=== PATIENT | female | born 1965 | race American Indian/Alaskan Native ===

== ENCOUNTER 2019-07-03 08:59 | Emergency (ER) | payer MEDICAID, OTHER ==
[~2019-07-03] VITALS: Ht 160 cm; Wt 85.9 kg
[~2019-07-03 08:59] MED LIST: CLON0.2T PO; HYDR-3965 PO; ONDA4TAB12 PO; PENI500T2 PO
[2019-07-03] MEDS ORDERED: cloNIDine 0.1 mg tablet PO SCH (10:30)
[2019-07-03] MEDS ORDERED: ibuprofen tablet 400 MG TABLET PO ONE (10:30)
[2019-07-03] MEDS ORDERED: IBUP-1984 PO (10:58)
[2019-07-03 11:17] VITALS: BP 210/125
== END 2019-07-03 11:20 | disposition home or self-care (01) ==
LOC: ER 09:00
DX: M25.562 Pain in left knee (principal); I10 Essential (primary) hypertension; F17.200 Nicotine dependence, unspecified, uncomplicated; Z98.890 Other specified postprocedural states; Z79.899 Other long term (current) drug therapy; Z79.2 Long term (current) use of antibiotics; W18.39XA Other fall on same level, initial encounter; Y93.89 Activity, other specified; Y92.89 Other specified places as the place of occurrence of the external cause; Y99.8 Other external cause status
CPT/HCPCS: 29505; 73564; 99283

== ENCOUNTER 2019-11-06 08:10 | Emergency (ER) | payer MEDICAID ==
[~2019-11-06] VITALS: Ht 160 cm; Wt 87.8 kg
[2019-11-06] MEDS ORDERED: HYDROcodone/acetaminophen 10/325mg tab PO ONE (08:40)
[2019-11-06] MEDS ORDERED: ondansetron 4mg rapidly disintigrating tab PO ONE (08:40)
--- NOTE | 2019-11-06 09:02 | NUR ---
APPLY ICE PACK TO RIGHT ARM
[2019-11-06] MEDS ORDERED: IBUP-1984 PO (09:44)
[2019-11-06 10:22] VITALS: BP 217/136
== END 2019-11-06 10:24 | disposition home or self-care (01) ==
LOC: ER 08:11
DX: S42.401A Unspecified fracture of lower end of right humerus, initial encounter for closed fracture (principal); M25.531 Pain in right wrist; I10 Essential (primary) hypertension; Z98.890 Other specified postprocedural states; Z79.899 Other long term (current) drug therapy; W18.39XA Other fall on same level, initial encounter; Y93.89 Activity, other specified; Y92.89 Other specified places as the place of occurrence of the external cause; Y99.8 Other external cause status
CPT/HCPCS: 29105; 73080; 73110; 99284

== ENCOUNTER 2020-03-12 08:01 | Inpatient (IN) | payer MEDICAID ==
[~2020-03-12] VITALS: Ht 160 cm; Wt 85.0 kg
[2020-03-12] MEDS ORDERED: morphine 4 MG/ML inj SYRINge IV ONE ×2 (09:05→10:10)
[2020-03-12] MEDS ORDERED: normal saline 1000ml 1,000 ML IV ONE (09:05)
[2020-03-12] MEDS ORDERED: ondansetron/PF 4mg/2ml inj IV ONE (09:05)
[2020-03-12 09:32] LABS: BASOPHILS % (AUTO) 0.2 % (0-1); EOSINOPHILS % (AUTO) 0.3 % (0-6); HEMATOCRIT 47.5 % (35.0-45.0); HEMOGLOBIN 15.8 g/dl (12.0-16.0); LYMPHOCYTES # (AUTO) 1.3 X10'3 (1.1-4.8); LYMPHOCYTES % (AUTO) 9.3 % (21-51); MEAN CORPUSCULAR HEMOGLOBIN 31.3 PG (27.0-31.0); MEAN CORPUSCULAR HGB CONC 33.3 g/dL (33.0-36.5); MEAN CORPUSCULAR VOLUME 94.2 FL (78-98); MEAN PLATELET VOLUME 6.8 FL (7.4-10.4); MONOCYTES # (AUTO) 0.7 X10'3 (0-0.9); NEUTROPHILS # (AUTO) 11.6 X10'3 (1.8-7.7); NEUTROPHILS % (AUTO) 85.2 % (42-75); PLATELET COUNT 188 X10'3 (140-440); RED BLOOD COUNT 5.04 X10'6 (4.20-5.60); RED CELL DISTRIBUTION WIDTH 12.9 % (11.5-14.5); WHITE BLOOD COUNT 13.7 X10'3 (4.5-11.0)
[2020-03-12 09:46] LABS: ALANINE AMINOTRANSFERASE 84 U/L (12-78); ALBUMIN 4.2 G/DL (3.4-5.0); ALKALINE PHOSPHATASE 70 IU/L (46-116); ANION GAP 17 (8-16); ASPARTATE AMINO TRANSFERASE 82 U/L (10-37); BILIRUBIN,TOTAL 0.5 MG/DL (0.1-1.0); BLOOD UREA NITROGEN 17 MG/DL (7-18); BUN/CREATININE RATIO 13.3 (6.6-38.0); CHLORIDE 103 MMOL/L (99-107); CREATININE 1.28 MG/DL (0.40-0.90); GLUCOSE 206 MG/DL (70-104); POTASSIUM 4.4 MMOL/L (3.5-5.1); SODIUM 142 MMOL/L (135-145); TOTAL CARBON DIOXIDE 21.6 MMOL/L (24-32); TOTAL PROTEIN 8.3 G/DL (6.4-8.2); eGFR 44 ML/MIN
[2020-03-12] MEDS ORDERED: labetalol 20mg/4ml (5mg/ml) syringe IV ONE (09:55)
[2020-03-12 10:03] LABS: LIPASE 14160 U/L (73-393)
[2020-03-12] MEDS ORDERED: normal saline 1000ML IV soln IV ONE (10:10)
[2020-03-12] MEDS ORDERED: fentaNYL/PF 50MCG/1 ML 2ML syringe IV ONE (10:15)
[2020-03-12 10:19] LABS: CLARITY,URINE CLOUDY (Clear); COLOR,URINE YELLOW (Yellow); GLUCOSE, URINE NEGATIVE (Neg); KETONES,URINE TRACE mg/dl (Neg); LEUKOCYTE ESTERASE ,URINE NEGATIVE (Neg); NITRITES, URINE NEGATIVE (Neg); OCCULT BLOOD,URINE NEGATIVE (Neg); PH,URINE 5.5 (4.8-8.0); PROTEIN,URINE 30 mg/dl (Neg); UA COLLECTION TYPE CLN CATCH MIDSTREAM; UROBILINOGEN,URINE 0.2 E.U/dL (0.2-1.0)
--- NOTE | 2020-03-12 10:22 | NUR ---
pt out to ct via wheelchair with director geophysical laboratory
[2020-03-12 10:24] LABS: SQUAMOUS EPITHELIAL CELL,UR MODERATE /LPF (FEW)
[2020-03-12 10:25] LABS: BACTERIA,URINE FEW /HPF (Neg); HYALINE CASTS >30 /LPF (NEGATIVE); MUCUS STRANDS MODERATE /LPF (Neg); RBC,URINE 0-2 /HPF (0-2); URINE AMPHETAMINE SCREEN NEGATIVE (Neg); URINE BARBITUATE SCREEN NEGATIVE (Neg); URINE BENZODIAZEPINES SCREEN NEGATIVE (Neg); URINE CANNABINOID SCREEN NEGATIVE (Neg); URINE COCAINE SCREEN NEGATIVE (Neg); URINE METHADONE SCREEN NEGATIVE (Neg); URINE OPIATE SCREEN POSITIVE (Neg); URINE PHENCYCLIDINE SCREEN NEGATIVE (Neg); WBC,URINE 0-4 /HPF (0-4)
--- NOTE | 2020-03-12 10:31 | NUR ---
pt returns from ct
--- NOTE | 2020-03-12 10:45 | NUR ---
marilu Mortensen is cleared for updates [phone]
[2020-03-12] MEDS ORDERED: HYDROmorphone 1 mg/ml syringe IV ONE (11:00)
[2020-03-12] MEDS ORDERED: haloperidol lactate 5mg/ml inj IM PRN (12:10)
[2020-03-12] MEDS ORDERED: mag hydrox/Alum hydrox/simeth 30ml oral suspension PO PRN (12:10)
[2020-03-12] MEDS ORDERED: thiamine 100mg/ml 2ml inj. IV ONE (12:10)
[2020-03-12] MEDS ORDERED: haloperidol 5mg tablet PO PRN (12:10)
[2020-03-12] MEDS ORDERED: HYDROcodone/acetaminophen 10/325mg tab PO PRN (12:10)
[2020-03-12] MEDS ORDERED: magnesium 4gm in 100ml NS 100 ML IV PRN (12:10)
[2020-03-12] MEDS ORDERED: potassium CL 10mEq/100ml bag 100 ML IV PRN ×2 (12:10)
[2020-03-12] MEDS ORDERED: magnesium Cl slow-release 64mg tablet PO PRN (12:10)
[2020-03-12] MEDS ORDERED: ondansetron/PF 4mg/2ml inj IV PRN (12:10)
[2020-03-12] MEDS ORDERED: dextrose 50%-water 50ml dispensing syringe IV PRN (12:10)
[2020-03-12] MEDS ORDERED: HYDROmorphone inj. 0.5 MG/0.5 ML DISP.SYRIN IV PRN (12:10)
[2020-03-12] MEDS ORDERED: acetaminophen 325mg tablet PO PRN ×2 (12:10)
[2020-03-12] MEDS ORDERED: potassium Cl 20 mEq SR tablet PO PRN ×2 (12:10)
[2020-03-12] MEDS ORDERED: magnesium 2GM in 50ml NS 50 ML IV PRN (12:10)
[2020-03-12] MEDS ORDERED: LOSA25TA96 PO (12:12)
[2020-03-12] MEDS ORDERED: CLON-330 PO (12:25)
[2020-03-12] MEDS ORDERED: LOSA1TAB41 PO (12:25)
[2020-03-12] MEDS: normal saline 1000ml 1,000 ML IV SCH ×2 (13:19→19:53)
[2020-03-12 15:00] VITALS: BP 189/121
[2020-03-12 18:00] VITALS: BP 194/93
--- NOTE | 2020-03-12 18:30 | NUR ---
Patient in room U 3014b. I have received report from Jemima HERNANDEZ and had the opportunity to ask questions and assume patient care.
--- NOTE | 2020-03-12 18:33 | NUR ---
Problems reprioritized. Patient report given, questions answered & plan of care reviewed with Idania HERNANDEZ.
--- NOTE | 2020-03-12 18:41 | NUR ---
Pt bp high notified, . MESSAGE: Re: Chuyita Mcnamara rm [id number]. Bp 194/93, consecutive bp 190/94.
[2020-03-12] MEDS ORDERED: atenolol 25mg tablet PO ONE (18:50)
[2020-03-12] MEDS: pantoprazole 40 MG vial IV SCH (19:38)
[2020-03-12] MEDS: heparin, porcine 5000 units/ml vial SQ SCH (19:40)
[2020-03-12] MEDS: docusate sod 100mg capsule PO SCH (19:40)
[2020-03-12] MEDS: LORazepam 2 mg/ml vial IV PRN (19:42)
[2020-03-12] MEDS: K and/or MAG REPLACEMENT MC SCH (19:51)
[2020-03-12] MEDS ORDERED: temazepam 15mg capsule PO PRN (21:00)
--- NOTE | 2020-03-12 21:28 | NUR ---
Pt nausea increasing, notified Md. MESSAGE: Re: Anders Boogie rm [id number]. Patient has increasing nausea and vomiting, Zofran is not working for her. Caprice, Thanks!
[2020-03-12] MEDS ORDERED: diphenhydrAMINE 50 mg/ml inj IV PRN (21:30)
[2020-03-12 22:00] VITALS: BP 207/112
--- NOTE | 2020-03-12 22:23 | NUR ---
Pts Bp rising, notified . MESSAGE: RE: Chuyita Mcnamara Rm 3013g, bp is still rising 207/112, 215/ 113, gave atenolol once at 25 mg po at 1858. Caprice, Adilene
[2020-03-12] MEDS: proCHLORperazine 10 MG/2 ml inj IV PRN (22:33)
[2020-03-12] MEDS: HYDROmorphone 1 mg/ml syringe IV PRN (22:33)
[2020-03-12] MEDS: hydrALAZINE 20mg/ml inj. IV PRN (22:46)
[2020-03-13] MEDS: normal saline 1000ml 1,000 ML IV SCH ×4 (01:31→22:53)
--- NOTE | 2020-03-13 01:57 | NUR ---
Pt does not want to be darted yet, very tired from pain and nausea. Will ask again at 0500.
[2020-03-13 02:00] VITALS: BP 168/97
[2020-03-13] MEDS: HYDROmorphone 1 mg/ml syringe IV PRN ×2 (03:47→07:57)
--- NOTE | 2020-03-13 05:00 | NUR ---
Patient refuses to be darted until morning. Will notify dayshift nurse.
[2020-03-13 05:52] LABS: BASOPHILS % (AUTO) 0.3 % (0-1); EOSINOPHILS # (AUTO) 0.1 X10'3 (0-0.9); EOSINOPHILS % (AUTO) 0.5 % (0-6); HEMATOCRIT 40.4 % (35.0-45.0); HEMOGLOBIN 13.5 g/dl (12.0-16.0); LYMPHOCYTES # (AUTO) 0.7 X10'3 (1.1-4.8); LYMPHOCYTES % (AUTO) 5.9 % (21-51); MEAN CORPUSCULAR HEMOGLOBIN 31.6 PG (27.0-31.0); MEAN CORPUSCULAR HGB CONC 33.3 g/dL (33.0-36.5); MEAN PLATELET VOLUME 7.1 FL (7.4-10.4); MONOCYTES # (AUTO) 0.5 X10'3 (0-0.9); MONOCYTES % (AUTO) 3.9 % (2-12); NEUTROPHILS # (AUTO) 10.8 X10'3 (1.8-7.7); NEUTROPHILS % (AUTO) 89.4 % (42-75); PLATELET COUNT 143 X10'3 (140-440); RED BLOOD COUNT 4.25 X10'6 (4.20-5.60); RED CELL DISTRIBUTION WIDTH 13.1 % (11.5-14.5); WHITE BLOOD COUNT 12.1 X10'3 (4.5-11.0)
[2020-03-13 06:00] VITALS: BP 160/87
--- NOTE | 2020-03-13 06:00 | NUR ---
Patient in room PCU 3014. I have received report from Idania HERNANDEZ and had the opportunity to ask questions and assume patient care.
[2020-03-13 06:11] LABS: ALANINE AMINOTRANSFERASE 51 U/L (12-78); ALBUMIN 3.2 G/DL (3.4-5.0); ALKALINE PHOSPHATASE 47 IU/L (46-116); ANION GAP 10 (8-16); ASPARTATE AMINO TRANSFERASE 47 U/L (10-37); BILIRUBIN,TOTAL 0.7 MG/DL (0.1-1.0); BLOOD UREA NITROGEN 17 MG/DL (7-18); BUN/CREATININE RATIO 16.5 (6.6-38.0); CALCIUM 6.7 MG/DL (8.5-10.1); CHLORIDE 109 MMOL/L (99-107); CHOL/HDL RATIO 7.8 (0.00-4.99); CHOLESTEROL 210 MG/DL (0-200); CREATININE 1.03 MG/DL (0.40-0.90); GLUCOSE 174 MG/DL (70-104); HDL CHOLESTEROL 27 MG/DL (35-60); LDL CHOLESTEROL 137 MG/DL (50-100); MAGNESIUM 1.5 MG/DL (1.5-2.4); POTASSIUM 3.8 MMOL/L (3.5-5.1); SODIUM 144 MMOL/L (135-145); TOTAL CARBON DIOXIDE 25.4 MMOL/L (24-32); TOTAL PROTEIN 6.3 G/DL (6.4-8.2); TRIGLYCERIDES 324 MG/DL (20-135); eGFR 56 ML/MIN
--- NOTE | 2020-03-13 06:29 | NUR ---
Problems reprioritized. Patient report given, questions answered & plan of care reviewed with Jemima HERNANDEZ.
[2020-03-13] MEDS: pantoprazole 40 MG vial IV SCH ×2 (07:57→19:28)
[2020-03-13] MEDS: proCHLORperazine 10 MG/2 ml inj IV PRN (07:57)
[2020-03-13] MEDS: HYDROchlorothiazide 12.5mg capsule PO SCH (07:57)
[2020-03-13] MEDS: losartan 50mg tablet PO SCH (07:58)
[2020-03-13] MEDS: docusate sod 100mg capsule PO SCH (07:58)
[2020-03-13] MEDS: heparin, porcine 5000 units/ml vial SQ SCH ×2 (07:58→19:29)
[2020-03-13] MEDS: K and/or MAG REPLACEMENT MC SCH ×2 (08:00→20:00)
[2020-03-13] MEDS ORDERED: HYDROcodone/acetaminophen 10/325mg tab PO PRN (10:00)
[2020-03-13] MEDS: atenolol 25mg tablet PO SCH (10:51)
[2020-03-13 11:00] VITALS: BP 145/85
[2020-03-13] MEDS: morphine 2 MG/ML inj. syringe IV PRN (13:39)
[2020-03-13 15:00] VITALS: BP 153/89
[2020-03-13] MEDS: LORazepam 2 mg/ml vial IV PRN ×2 (15:36→19:36)
[2020-03-13 18:00] VITALS: BP 165/93
--- NOTE | 2020-03-13 18:07 | NUR ---
Problems reprioritized. Patient report given, questions answered & plan of care reviewed with Bentley RN.
--- NOTE | 2020-03-13 18:30 | NUR ---
Patient in room PCU 3014. I have received report from Jemima HERNANDEZ and had the opportunity to ask questions and assume patient care.
[2020-03-13 22:00] VITALS: BP 177/101
[2020-03-14] VITALS (7 sets, daily range): BP systolic 114–185; BP diastolic 85–105
[2020-03-14] MEDS: LORazepam 2 mg/ml vial IV PRN ×2 (01:56→08:51)
--- NOTE | 2020-03-14 06:00 | NUR ---
Patient in room PCU 3014. I have received report from Bentley RN and had the opportunity to ask questions and assume patient care.
[2020-03-14 06:24] LABS: ALANINE AMINOTRANSFERASE 36 U/L (12-78); ALBUMIN 2.9 G/DL (3.4-5.0); ALBUMIN/GLOBULIN RATIO 0.9 (1.1-1.5); ALKALINE PHOSPHATASE 46 IU/L (46-116); ANION GAP 12 (8-16); ASPARTATE AMINO TRANSFERASE 39 U/L (10-37); BILIRUBIN,TOTAL 1.4 MG/DL (0.1-1.0); CALCIUM 6.1 MG/DL (8.5-10.1); CHLORIDE 108 MMOL/L (99-107); CREATININE 1.26 MG/DL (0.40-0.90); GLUCOSE 143 MG/DL (70-104); MAGNESIUM 1.4 MG/DL (1.5-2.4); POTASSIUM 3.5 MMOL/L (3.5-5.1); SODIUM 141 MMOL/L (135-145); TOTAL CARBON DIOXIDE 21.5 MMOL/L (24-32); TOTAL PROTEIN 6.2 G/DL (6.4-8.2); eGFR 45 ML/MIN
[2020-03-14 06:25] LABS: BASOPHILS % (AUTO) 0.3 % (0-1); EOSINOPHILS % (AUTO) 0.2 % (0-6); HEMATOCRIT 39.4 % (35.0-45.0); HEMOGLOBIN 13.1 g/dl (12.0-16.0); LYMPHOCYTES # (AUTO) 1.1 X10'3 (1.1-4.8); LYMPHOCYTES % (AUTO) 7.4 % (21-51); MEAN CORPUSCULAR HGB CONC 33.2 g/dL (33.0-36.5); MEAN CORPUSCULAR VOLUME 96.4 FL (78-98); MEAN PLATELET VOLUME 7.5 FL (7.4-10.4); MONOCYTES # (AUTO) 0.9 X10'3 (0-0.9); MONOCYTES % (AUTO) 5.7 % (2-12); NEUTROPHILS # (AUTO) 13.2 X10'3 (1.8-7.7); NEUTROPHILS % (AUTO) 86.4 % (42-75); PLATELET COUNT 117 X10'3 (140-440); RED BLOOD COUNT 4.09 X10'6 (4.20-5.60); WHITE BLOOD COUNT 15.3 X10'3 (4.5-11.0)
--- NOTE | 2020-03-14 06:28 | NUR ---
Problems reprioritized. Patient report given, questions answered & plan of care reviewed with Jemima HERNANDEZ.
[2020-03-14 07:01] LABS: BLOOD UREA NITROGEN 16 MG/DL (7-18); BUN/CREATININE RATIO 12.7 (6.6-38.0)
[2020-03-14] MEDS: K and/or MAG REPLACEMENT MC SCH ×2 (08:00→19:57)
[2020-03-14] MEDS: losartan 50mg tablet PO SCH (08:49)
[2020-03-14] MEDS: HYDROchlorothiazide 12.5mg capsule PO SCH (08:50)
[2020-03-14] MEDS: atenolol 25mg tablet PO SCH ×3 (08:50→20:03)
[2020-03-14] MEDS: heparin, porcine 5000 units/ml vial SQ SCH (08:51)
[2020-03-14] MEDS: pantoprazole 40 MG vial IV SCH ×2 (08:51→20:02)
[2020-03-14] MEDS: normal saline 1000ml 1,000 ML IV SCH ×3 (08:53→22:34)
[2020-03-14] MEDS: hydrALAZINE 20mg/ml inj. IV PRN (09:03)
[2020-03-14] MEDS: proCHLORperazine 10 MG/2 ml inj IV PRN (09:04)
[2020-03-14] MEDS ORDERED: ondansetron/PF 4mg/2ml inj IV PRN (10:10)
[2020-03-14] MEDS ORDERED: proCHLORperazine 10 MG/2 ml inj IV PRN (10:10)
[2020-03-14] MEDS ORDERED: LORazepam 2 mg/ml vial IV PRN ×2 (12:10→17:00)
[2020-03-14] MEDS ORDERED: LORazepam 1 MG tablet PO PRN ×2 (12:10→17:00)
--- NOTE | 2020-03-14 12:19 | NUR ---
PAGER ID: [phone] MESSAGE: [id number] Tiffany Mcnamara. Unwitnessed fall in shower. Per pt, was sitting on shower chair, attempted to stand and lost her balance. States she did not hit her head. Noted abrasions on back and R arm. No bleeding. Answers appropriately. Ele [id number]
--- NOTE | 2020-03-14 12:25 | NUR ---
Received call back from Dr. Dupree. No new interventions. Monitor v/s. Neurochecks for 24hrs
--- NOTE | 2020-03-14 12:28 | NUR ---
Vital signs stable. Patient A&Ox4. Neurocheck intervention added and documented. GCS 15. Reflexes and motor functions intact. Will continue neurochecks for 24hrs.
--- NOTE | 2020-03-14 13:28 | NUR ---
PAGER ID: [phone] MESSAGE: [id number] Ana Mcnamara down to 1052. Ele 2606 Addendum: 03/14/20 at 1421 by Jemima Sprague RN Dr. Dupree informed of post fall assessment. No new orders. Will continue to monitor and report any changes.
--- NOTE | 2020-03-14 15:00 | NUR ---
PAGER ID: [phone] MESSAGE: [id number] Ana Mcnamara Running fever of 102. Just FYI. Marlow [phone]
[2020-03-14] MEDS: CefTRIAXone 2gm/D5W 50ml 50 ML IV SCH (16:10)
--- NOTE | 2020-03-14 16:23 | NUR ---
PAGER ID: [phone] MESSAGE: [id number] Tiffany Mcnamara. Procalcitonin 1.38 Ele 0239
--- NOTE | 2020-03-14 18:24 | NUR ---
Problems reprioritized. Patient report given, questions answered & plan of care reviewed with Prudence RN.
--- NOTE | 2020-03-14 18:35 | NUR ---
Patient in room PCU 3014. I have received report from Ele HERNANDEZ and had the opportunity to ask questions and assume patient care. patient in the room resting abd shows no apparent distress.
[2020-03-14] MEDS: morphine 2 MG/ML inj. syringe IV PRN (20:13)
[2020-03-15] MEDS: morphine 2 MG/ML inj. syringe IV PRN (02:31)
[2020-03-15 02:53] VITALS: BP 163/88
[2020-03-15 06:00] VITALS: BP 178/97
[2020-03-15 06:24] LABS: ALANINE AMINOTRANSFERASE 31 U/L (12-78); ALBUMIN 2.7 G/DL (3.4-5.0); ALBUMIN/GLOBULIN RATIO 0.7 (1.1-1.5); ALKALINE PHOSPHATASE 50 IU/L (46-116); ANION GAP 18 (8-16); ASPARTATE AMINO TRANSFERASE 43 U/L (10-37); BILIRUBIN,TOTAL 1.3 MG/DL (0.1-1.0); BLOOD UREA NITROGEN 14 MG/DL (7-18); BUN/CREATININE RATIO 13.9 (6.6-38.0); CALCIUM 6.1 MG/DL (8.5-10.1); CHLORIDE 105 MMOL/L (99-107); CREATININE 1.01 MG/DL (0.40-0.90); GLUCOSE 125 MG/DL (70-104); MAGNESIUM 1.6 MG/DL (1.5-2.4); POTASSIUM 3.5 MMOL/L (3.5-5.1); SODIUM 141 MMOL/L (135-145); TOTAL CARBON DIOXIDE 17.7 MMOL/L (24-32); TOTAL PROTEIN 6.4 G/DL (6.4-8.2); eGFR 58 ML/MIN
--- NOTE | 2020-03-15 06:32 | NUR ---
Problems reprioritized. Patient report given, questions answered & plan of care reviewed with JUDI HERNANDEZ.
[2020-03-15] MEDS: pantoprazole 40 MG vial IV SCH (08:13)
[2020-03-15] MEDS: atenolol 25mg tablet PO SCH (08:13)
[2020-03-15] MEDS: HYDROchlorothiazide 12.5mg capsule PO SCH (08:13)
[2020-03-15] MEDS: losartan 50mg tablet PO SCH (08:13)
[2020-03-15] MEDS: CefTRIAXone 2gm/D5W 50ml 50 ML IV SCH (08:13)
[2020-03-15 09:06] LABS: BASOPHILS % (AUTO) 0.2 % (0-1); EOSINOPHILS % (AUTO) 0.3 % (0-6); HEMATOCRIT 35.8 % (35.0-45.0); HEMOGLOBIN 11.9 g/dl (12.0-16.0); LYMPHOCYTES # (AUTO) 1.2 X10'3 (1.1-4.8); LYMPHOCYTES % (AUTO) 8.3 % (21-51); MEAN CORPUSCULAR HEMOGLOBIN 31.9 PG (27.0-31.0); MEAN CORPUSCULAR HGB CONC 33.2 g/dL (33.0-36.5); MEAN CORPUSCULAR VOLUME 96.1 FL (78-98); MEAN PLATELET VOLUME 7.6 FL (7.4-10.4); MONOCYTES # (AUTO) 1.4 X10'3 (0-0.9); MONOCYTES % (AUTO) 10.1 % (2-12); NEUTROPHILS # (AUTO) 11.2 X10'3 (1.8-7.7); NEUTROPHILS % (AUTO) 81.1 % (42-75); PLATELET COUNT 129 X10'3 (140-440); RED BLOOD COUNT 3.72 X10'6 (4.20-5.60); WHITE BLOOD COUNT 13.8 X10'3 (4.5-11.0)
[2020-03-15 09:50] LABS: PLATELET ESTIMATE DECREASED; TOTAL CELLS COUNTED 100
[2020-03-15] MEDS ORDERED: HYDR-4383 PO (09:59)
[2020-03-15] MEDS ORDERED: OMEP20CA15 PO (09:59)
[2020-03-15] MEDS ORDERED: ATEN-168 PO (09:59)
[2020-03-15] MEDS ORDERED: LEVO500T2 PO (09:59)
--- NOTE | 2020-03-15 11:38 | NUR ---
Discharge PAGER ID: [phone] MESSAGE: Ana Navarro will discharge home. She did eat a yogurt and tolerated that well. Please write for discharge if it is your intention for her to go home now. We will otherwise AMA within a few minutes. Thank You Irina HERNANDEZ [phone]
--- NOTE | 2020-03-15 11:50 | NUR ---
Discharged to care of . 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 Written instructions for care and follow up are provided.
[2020-03-16] MEDS ORDERED: LORazepam 1 MG tablet PO PRN (12:10)
[2020-03-16] MEDS ORDERED: LORazepam 2 mg/ml vial IV PRN (12:10)
== END 2020-03-15 11:50 | disposition home or self-care (01) | DRG 282 ==
LOC: ER 08:02 → ED HOLD 12:09 → PCU 3S 15:06
PROVIDERS: ADMIT Internal Medicine; ATTEND Internal Medicine
DX: K85.90 Acute pancreatitis without necrosis or infection, unspecified (principal); D72.829 Elevated white blood cell count, unspecified; F10.10 Alcohol abuse, uncomplicated; Y90.9 Presence of alcohol in blood, level not specified; I10 Essential (primary) hypertension; F17.200 Nicotine dependence, unspecified, uncomplicated; Z71.6 Tobacco abuse counseling
CPT/HCPCS: 36415; 71045; 74176; 80053; 80061; 80305; 81001; 82948; 83605; 83690; 83735; 84145; 84484; 85025; 85610; 87040; 87081; 93005; 97116; 97161; 97530; 99285; C9113; G0378; J0360; J0696; J0780; J1170; J1200; J1644; J2060; J2270; J2405; J3010; J3411; J3490; J7030

== ENCOUNTER 2022-04-30 09:17 | Emergency (ER) | payer MEDICAID ==
[~2022-04-30 09:17] MED LIST changes: +ATEN-168 PO; +CLON-330 PO; -CLON0.2T PO; -HYDR-3965 PO; +HYDR-4383 PO; +LOSA1TAB41 PO; +OMEP20CA15 PO; -ONDA4TAB12 PO; -PENI500T2 PO
== END 2022-04-30 12:02 | disposition left against medical advice (07) ==
LOC: ER 09:18
DX: R07.89 Other chest pain (principal); Z53.21 Procedure and treatment not carried out due to patient leaving prior to being seen by health care provider
CPT/HCPCS: 93005

== ENCOUNTER 2022-11-11 08:52 | Emergency (ER) | payer MEDICAID ==
[~2022-11-11] VITALS: Ht 157.5 cm; Wt 82.3 kg
[2022-11-11 09:42] LABS: CLARITY,URINE SLIGHTLY CLOUDY (Clear); COLOR,URINE YELLOW (Yellow); GLUCOSE, URINE NEGATIVE (Neg); KETONES,URINE NEGATIVE (Neg); LEUKOCYTE ESTERASE ,URINE NEGATIVE (Neg); NITRITES, URINE NEGATIVE (Neg); OCCULT BLOOD,URINE NEGATIVE (Neg); PROTEIN,URINE NEGATIVE (Neg); UROBILINOGEN,URINE 0.2 E.U/dL (0.2-1.0)
[2022-11-11 09:48] LABS: UA COLLECTION TYPE CLN CATCH MIDSTREAM
[2022-11-11 09:55] LABS: BACTERIA,URINE FEW /HPF (Neg); MUCUS STRANDS NONE SEEN /LPF (Neg); RBC,URINE 0-2 /HPF (0-2); SQUAMOUS EPITHELIAL CELL,UR MODERATE /LPF (FEW); WBC,URINE 0-4 /HPF (0-4)
[2022-11-11 10:18] LABS: BASOPHILS # (AUTO) 0.1 X10'3 (0-0.2); BASOPHILS % (AUTO) 0.7 % (0-1); EOSINOPHILS # (AUTO) 0.1 X10'3 (0-0.9); EOSINOPHILS % (AUTO) 1.3 % (0-6); HEMATOCRIT 38.2 % (35.0-45.0); HEMOGLOBIN 12.7 g/dl (12.0-16.0); LYMPHOCYTES # (AUTO) 2.7 X10'3 (1.1-4.8); LYMPHOCYTES % (AUTO) 31.3 % (21-51); MEAN CORPUSCULAR HEMOGLOBIN 31.3 PG (27.0-31.0); MEAN CORPUSCULAR HGB CONC 33.4 g/dL (33.0-36.5); MEAN CORPUSCULAR VOLUME 93.8 FL (78-98); MEAN PLATELET VOLUME 6.3 FL (7.4-10.4); MONOCYTES # (AUTO) 0.6 X10'3 (0-0.9); MONOCYTES % (AUTO) 6.8 % (2-12); NEUTROPHILS # (AUTO) 5.1 X10'3 (1.8-7.7); NEUTROPHILS % (AUTO) 59.9 % (42-75); PLATELET COUNT 248 X10'3 (140-440); RED BLOOD COUNT 4.07 X10'6 (4.20-5.60); RED CELL DISTRIBUTION WIDTH 15.5 % (11.5-14.5); WHITE BLOOD COUNT 8.5 X10'3 (4.5-11.0)
[2022-11-11 10:32] LABS: ALANINE AMINOTRANSFERASE 34 U/L (12-78); ALBUMIN 3.6 G/DL (3.4-5.0); ALBUMIN/GLOBULIN RATIO 1.1 (1.1-1.5); ALKALINE PHOSPHATASE 63 IU/L (46-116); ANION GAP 9 (8-16); ASPARTATE AMINO TRANSFERASE 32 U/L (10-37); BILIRUBIN,TOTAL 0.4 MG/DL (0.1-1.0); BLOOD UREA NITROGEN 18 MG/DL (7-18); BUN/CREATININE RATIO 21.7 (6.6-38.0); CALCIUM 8.8 MG/DL (8.5-10.1); CHLORIDE 105 MMOL/L (99-107); CREATININE 0.83 MG/DL (0.40-0.90); GLUCOSE 103 MG/DL (70-104); POTASSIUM 3.8 MMOL/L (3.5-5.1); SODIUM 141 MMOL/L (135-145); TOTAL CARBON DIOXIDE 27.1 MMOL/L (24-32); TOTAL PROTEIN 6.9 G/DL (6.4-8.2); eGFR 71 ML/MIN
[2022-11-11 12:07] VITALS: BP 125/94
== END 2022-11-11 11:45 | disposition home or self-care (01) ==
LOC: ER 08:52
DX: R07.89 Other chest pain (principal); I10 Essential (primary) hypertension; F17.200 Nicotine dependence, unspecified, uncomplicated
CPT/HCPCS: 36415; 71045; 80053; 81001; 83735; 83880; 84484; 85025; 93005; 99285

== ENCOUNTER 2024-03-26 11:15 | Inpatient (IN) | payer MEDICAID ==
[~2024-03-26] VITALS: Ht 160 cm; Wt 88.6 kg
[2024-03-26] MEDS: LidoCAINE 2% Topical Jelly 11mL syringe (UROJET) TOP ONE ×2 (11:59→14:02)
[2024-03-26 12:37] LABS: BASOPHILS # (AUTO) 0.1 X10'3 (0-0.2); BASOPHILS % (AUTO) 0.5 % (0-1); EOSINOPHILS # (AUTO) 0.1 X10'3 (0-0.9); EOSINOPHILS % (AUTO) 0.6 % (0-6); HEMATOCRIT 38.8 % (35.0-45.0); HEMOGLOBIN 12.9 g/dl (12.0-16.0); LYMPHOCYTES # (AUTO) 1.1 X10'3 (1.1-4.8); MEAN CORPUSCULAR HEMOGLOBIN 29.6 PG (27.0-31.0); MEAN CORPUSCULAR HGB CONC 33.3 g/dL (33.0-36.5); MEAN CORPUSCULAR VOLUME 88.7 FL (78-98); MEAN PLATELET VOLUME 7.3 FL (7.4-10.4); MONOCYTES # (AUTO) 0.9 X10'3 (0-0.9); MONOCYTES % (AUTO) 6.6 % (2-12); NEUTROPHILS # (AUTO) 11.2 X10'3 (1.8-7.7); NEUTROPHILS % (AUTO) 84.3 % (42-75); PLATELET COUNT 248 X10'3 (140-440); RED BLOOD COUNT 4.37 X10'6 (4.20-5.60); RED CELL DISTRIBUTION WIDTH 15.2 % (11.5-14.5); WHITE BLOOD COUNT 13.2 X10'3 (4.5-11.0)
[2024-03-26 12:55] LABS: ALANINE AMINOTRANSFERASE 22 U/L (12-78); ALBUMIN 3.1 G/DL (3.4-5.0); ALBUMIN/GLOBULIN RATIO 0.8 (1.1-1.5); ALKALINE PHOSPHATASE 53 IU/L (46-116); ANION GAP 12 (8-16); ASPARTATE AMINO TRANSFERASE 11 U/L (10-37); BILIRUBIN,TOTAL 0.4 MG/DL (0.1-1.0); BLOOD UREA NITROGEN 32 MG/DL (7-18); BUN/CREATININE RATIO 22.4 (10.0-20.0); CALCIUM 8.9 MG/DL (8.5-10.1); CHLORIDE 97 MMOL/L (99-107); CREATININE 1.43 MG/DL (0.40-0.90); GLUCOSE 124 MG/DL (70-104); LIPASE 30 U/L (16-77); POTASSIUM 3.4 MMOL/L (3.5-5.1); SODIUM 134 MMOL/L (135-145); TOTAL CARBON DIOXIDE 24.6 MMOL/L (24-32); eCRCL 36 ML/MIN; eGFR 38 ML/MIN
[2024-03-26] MEDS ORDERED: iohexol 300mg/ml 100ml inj. ONE (13:07)
[2024-03-26] MEDS: ondansetron/PF 4mg/2ml inj IV ONE (13:54)
[2024-03-26] MEDS: morphine 4 MG/ML inj SYRINge IV ONE (13:55)
[2024-03-26] MEDS: piperacillin/tazo 3.375gm/50ml 50 ML IV ONE (14:00)
[2024-03-26] MEDS: normal saline 1000ML IV soln IVB ONE (14:02)
[2024-03-26 14:24] LABS: BILIRUBIN,URINE SMALL (Neg); CLARITY,URINE SLIGHTLY CLOUDY (Clear); COLOR,URINE YELLOW (Yellow); GLUCOSE, URINE NEGATIVE (Neg); KETONES,URINE TRACE mg/dl (Neg); LEUKOCYTE ESTERASE ,URINE MODERATE (Neg); NITRITES, URINE NEGATIVE (Neg); OCCULT BLOOD,URINE MODERATE (Neg); PH,URINE 5.5 (4.8-8.0); PROTEIN,URINE NEGATIVE (Neg); UROBILINOGEN,URINE 0.2 E.U/dL (0.2-1.0)
[2024-03-26 14:26] LABS: UA COLLECTION TYPE VOIDED
[2024-03-26 14:27] LABS: URINE HCG NEGATIVE (NEG)
[2024-03-26 14:33] LABS: BACTERIA,URINE 3+ /HPF (Neg); RBC,URINE 0-2 /HPF (0-2); SQUAMOUS EPITHELIAL CELL,UR MODERATE /LPF (FEW)
[2024-03-26] MEDS ORDERED: mag hydrox/Alum hydrox/simeth 30ml oral suspension PO PRN (16:20)
[2024-03-26] MEDS ORDERED: magnesium sulf-water 4G/100mL 100 ML IV PRN (16:20)
[2024-03-26] MEDS ORDERED: potassium Cl 20 mEq SR tablet PO PRN ×2 (16:20)
[2024-03-26] MEDS ORDERED: magnesium sulf-water 2g/50mL 50 ML IV PRN (16:20)
[2024-03-26] MEDS ORDERED: potassium Cl 40MEQ/1/2NS 520ml 520 ML IV PRN (16:20)
[2024-03-26] MEDS ORDERED: GABA-530 PO (17:26)
[2024-03-26] MEDS ORDERED: PIOG45TA65 PO (17:26)
[2024-03-26] MEDS ORDERED: ATEN-169 PO (17:28)
[2024-03-26 17:52] LABS: INR 1.1 INR; PROTHROMBIN TIME 11.1 SECONDS (9.0-12.0)
[2024-03-26 17:56] LABS: APTT 28 SECONDS (22-32)
[2024-03-26] MEDS: normal saline 1000ml 1,000 ML IV SCH (18:55)
[2024-03-26] MEDS: morphine 2 MG/ML inj. syringe IV PRN (19:06)
[2024-03-26] MEDS: K and/or MAG REPLACEMENT MC SCH (19:34)
[2024-03-26] MEDS: docusate sod 100mg capsule PO SCH (19:34)
[2024-03-26] MEDS ORDERED: morphine 2 MG/ML inj. syringe IV PRN (22:30)
[2024-03-26] MEDS ORDERED: ondansetron/PF 4mg/2ml inj IV PRN ×2 (22:30→23:00)
[2024-03-26] MEDS ORDERED: meperidine/PF 25mg/ml syringe IV PRN ×3 (22:30)
[2024-03-26] MEDS ORDERED: morphine 4 MG/ML inj SYRINge IV PRN (22:30)
[2024-03-26] MEDS ORDERED: midazolam 1 mg/ML 2ml injection ONE (22:32)
[2024-03-26] MEDS ORDERED: fentaNYL/PF 50MCG/1 ML 2ML syringe ONE (22:32)
[2024-03-26] MEDS ORDERED: propofol inj 20 ML IV ONE (22:32)
[2024-03-26] MEDS ORDERED: naloxone 0.4 mg/ml inj IV PRN (23:00)
[2024-03-26 23:05] VITALS: BP 116/77; PULSE 78; RESP 15; O2SAT 100
[2024-03-26 23:15] VITALS: BP 98/79; PULSE 93; RESP 14; O2SAT 96
[2024-03-26] MEDS: ondansetron/PF 4mg/2ml inj IV PRN (23:23)
[2024-03-26 23:25] VITALS: BP 140/77; PULSE 94; RESP 15; O2SAT 94
[2024-03-26] MEDS: proCHLORperazine 10 MG/2 ml inj IV PRN (23:27)
[2024-03-26 23:35] VITALS: BP 158/98; PULSE 89; RESP 16; O2SAT 96
[2024-03-26 23:45] VITALS: BP_SYST 151; BP_SYST 171; BP_DIAS 83; BP_DIAS 94; PULSE 85; PULSE 86; RESP 15; RESP 18; TEMP 97.7; O2SAT 93; O2SAT 97
[2024-03-26 23:55] VITALS: BP 143/73; PULSE 80; RESP 14; O2SAT 96
[2024-03-27] VITALS (10 sets, daily range): BP systolic 106–152; BP diastolic 54–86; PULSE 61–95; RESP 14–18; TEMP 97.9–101.7; O2SAT 91–98
[2024-03-27] MEDS: BUPIVAcaine 2.5mg/ml inj 50ml vial (contains preservative) ONE (00:07)
[2024-03-27] MEDS: ringers solution, lacted 1,000 ML IV SCH (00:07)
[2024-03-27] MEDS: HYDROcodone/acetaminophen 5mg/325mg tablet PO PRN (03:30)
[2024-03-27] MEDS ORDERED: CefTRIAXone/D5W-Rocephin 1gm 50 ML IV SCH (07:40)
[2024-03-27 07:54] LABS: BASOPHILS # (AUTO) 0.1 X10'3 (0-0.2); BASOPHILS % (AUTO) 0.6 % (0-1); EOSINOPHILS # (AUTO) 0.1 X10'3 (0-0.9); EOSINOPHILS % (AUTO) 0.7 % (0-6); HEMATOCRIT 38.2 % (35.0-45.0); HEMOGLOBIN 12.6 g/dl (12.0-16.0); LYMPHOCYTES # (AUTO) 1.1 X10'3 (1.1-4.8); LYMPHOCYTES % (AUTO) 8.6 % (21-51); MEAN CORPUSCULAR HEMOGLOBIN 29.7 PG (27.0-31.0); MEAN CORPUSCULAR HGB CONC 33.1 g/dL (33.0-36.5); MEAN CORPUSCULAR VOLUME 89.6 FL (78-98); MEAN PLATELET VOLUME 7.4 FL (7.4-10.4); MONOCYTES # (AUTO) 0.6 X10'3 (0-0.9); MONOCYTES % (AUTO) 4.6 % (2-12); NEUTROPHILS # (AUTO) 10.7 X10'3 (1.8-7.7); NEUTROPHILS % (AUTO) 85.5 % (42-75); PLATELET COUNT 245 X10'3 (140-440); RED BLOOD COUNT 4.26 X10'6 (4.20-5.60); RED CELL DISTRIBUTION WIDTH 15.1 % (11.5-14.5); WHITE BLOOD COUNT 12.5 X10'3 (4.5-11.0)
[2024-03-27 08:07] LABS: ALBUMIN 2.9 G/DL (3.4-5.0); ANION GAP 12 (8-16); BLOOD UREA NITROGEN 20 MG/DL (7-18); BUN/CREATININE RATIO 17.5 (10.0-20.0); CALCIUM 8.1 MG/DL (8.5-10.1); CHLORIDE 102 MMOL/L (99-107); CREATININE 1.14 MG/DL (0.40-0.90); GLUCOSE 105 MG/DL (70-104); MAGNESIUM 1.4 MG/DL (1.5-2.4); POTASSIUM 3.8 MMOL/L (3.5-5.1); SODIUM 140 MMOL/L (135-145); TOTAL CARBON DIOXIDE 26.5 MMOL/L (24-32); eCRCL 46 ML/MIN; eGFR 49 ML/MIN
[2024-03-27] MEDS: CefTRIAXone/D5W-Rocephin 1gm 50 ML IV SCH (09:02)
[2024-03-27] MEDS: vancomycin/NS 1 GM ADD-VANTAGE 250 ML IV SCH (10:25)
[2024-03-27] MEDS: acetaminophen 325mg tablet PO PRN (10:37)
[2024-03-27] MEDS: piperacillin/tazo 3.375gm/50ml 50 ML IV SCH (12:30)
[2024-03-27] MEDS: magnesium Cl slow-release 64mg tablet PO PRN (15:19)
[2024-03-27] MEDS: atenolol 25mg tablet PO SCH (20:52)
[2024-03-27] MEDS: morphine 2 MG/ML inj. syringe IV PRN (20:52)
[2024-03-27] MEDS: cloNIDine 0.1 mg tablet PO SCH (23:32)
[2024-03-28 06:00] VITALS: BP 138/71; PULSE 73; RESP 16; TEMP 97.3; O2SAT 95
[2024-03-28 07:13] LABS: BASOPHILS % (AUTO) 0.4 % (0-1); EOSINOPHILS # (AUTO) 0.1 X10'3 (0-0.9); EOSINOPHILS % (AUTO) 1.4 % (0-6); HEMATOCRIT 33.9 % (35.0-45.0); HEMOGLOBIN 11.4 g/dl (12.0-16.0); LYMPHOCYTES # (AUTO) 1.1 X10'3 (1.1-4.8); LYMPHOCYTES % (AUTO) 10.6 % (21-51); MEAN CORPUSCULAR HEMOGLOBIN 30.1 PG (27.0-31.0); MEAN CORPUSCULAR HGB CONC 33.5 g/dL (33.0-36.5); MEAN CORPUSCULAR VOLUME 89.7 FL (78-98); MEAN PLATELET VOLUME 7.1 FL (7.4-10.4); MONOCYTES % (AUTO) 9.8 % (2-12); NEUTROPHILS # (AUTO) 8.1 X10'3 (1.8-7.7); NEUTROPHILS % (AUTO) 77.8 % (42-75); PLATELET COUNT 219 X10'3 (140-440); RED BLOOD COUNT 3.78 X10'6 (4.20-5.60); RED CELL DISTRIBUTION WIDTH 14.7 % (11.5-14.5); WHITE BLOOD COUNT 10.4 X10'3 (4.5-11.0)
[2024-03-28 07:34] LABS: ALBUMIN 2.4 G/DL (3.4-5.0); ANION GAP 10 (8-16); BLOOD UREA NITROGEN 10 MG/DL (7-18); BUN/CREATININE RATIO 9.7 (10.0-20.0); CALCIUM 7.8 MG/DL (8.5-10.1); CHLORIDE 103 MMOL/L (99-107); CREATININE 1.03 MG/DL (0.40-0.90); GLUCOSE 98 MG/DL (70-104); MAGNESIUM 1.3 MG/DL (1.5-2.4); POTASSIUM 3.7 MMOL/L (3.5-5.1); SODIUM 139 MMOL/L (135-145); TOTAL CARBON DIOXIDE 26.5 MMOL/L (24-32); eCRCL 50 ML/MIN; eGFR 55 ML/MIN
[2024-03-28] MEDS: pioglitazone 45mg tablet PO SCH (08:24)
[2024-03-28] MEDS: magnesium hydroxide 30ml (MOM) UD suspension PO PRN (08:25)
[2024-03-28 08:30] VITALS: RESP 18; O2SAT 96
[2024-03-28 10:00] VITALS: BP 115/67; PULSE 66; RESP 18; TEMP 97.8; O2SAT 94
[2024-03-28] MEDS ORDERED: HYDR-3965 PO (15:36)
[2024-03-28] MEDS ORDERED: LACT1CAP74 PO (15:36)
[2024-03-28] MEDS ORDERED: AMOX-580 PO (15:36)
[2024-03-28] MEDS ORDERED: VANCOMYCIN LEVEL IV ONE (20:30)
== END 2024-03-28 16:45 | disposition home or self-care (01) | DRG 223 ==
LOC: ER 11:16 → ED HOLD 16:21 → ORTHO 4S 23:55
PROVIDERS: ADMIT Family Medicine; ATTEND Family Medicine
PROC: BW2G1ZZ Computerized Tomography (CT Scan) of Pelvic Region using Low Osmolar Contrast (ICD-10-PCS; 2024-03-26)
PROC: 0D9P0ZZ Drainage of Rectum, Open Approach (ICD-10-PCS; principal; 2024-03-26 22:26)
DX: K61.1 Rectal abscess (principal); N17.9 Acute kidney failure, unspecified; E11.9 Type 2 diabetes mellitus without complications; I10 Essential (primary) hypertension; N39.0 Urinary tract infection, site not specified; K61.2 Anorectal abscess; Z98.891 History of uterine scar from previous surgery
CPT/HCPCS: 36415; 71045; 72193; 80048; 80053; 81001; 81025; 82948; 83036; 83605; 83690; 83735; 84145; 85025; 85610; 85730; 87040; 87070; 87075; 87077; 87081; 87088; 87186; 93005; 96365; 96375; 99285; A4615; A4618; A6253; A6258; A6407; A6449; A7000; G0378; J0696; J0780; J2250; J2270; J2405; J2543; J2704; J3010; J3370; J3490; J7030; J7120; Q9967

== ENCOUNTER 2025-01-06 01:56 | Emergency (ER) | payer MEDICAID ==
[~2025-01-06] VITALS: Ht 160 cm; Wt 90.0 kg
[~2025-01-06 01:56] MED LIST changes: +GABA-530 PO; -HYDR-4383 PO; +LACT1CAP74 PO; -LOSA1TAB41 PO; -OMEP20CA15 PO; +PIOG45TA65 PO
--- NOTE | 2025-01-06 02:14 | Physician Documentation ---
History of Present Illness ~ Chief Complaint: Chest Pain Stated Complaint: CHEST WALL PAIN Time Seen by MD: 02:13 Primary Medical Doctor: [facility] Source: patient, EMS Exam Limitations: intoxication HPI 59-year-old female with reported history of heart conditions, who presents with chest pain and alcohol use tonight Per EMS, the patient arrives from home, where she and her family members were drinking alcohol. She was complaining of chest pain. She reported chronic chest pain for the past several years. Here in the ED, the patient does admit to drinking a lot of alcohol today. She tells me that she was having pain in her central chest, that radiates through to her back. She reports having this pain for about the last 4 years. Sometimes she does take nitroglycerin. She tells me that she has water on my heart and so she takes medications for this. She denies any shortness of breath, cough, abdominal pain, nausea, leg swelling, or other associated symptoms. She was report being under lot of stress recently. Tetanus within 5 Years?: No Allergies: Coded Allergies: No Known Allergies (Unverified , 01/06/25) Active Prescriptions See Medication Reconciliation Form. Medication Reconciliation Scheduled Atenolol (Tenormin), 25 MG PO BID Clonidine HCl (Clonidine HCl), 1 TAB PO Q8H, (Reported) Gabapentin (Gabapentin), 1 CAP PO DAILY, (Reported) Lactobacillus Rhamnosus GG (Culturelle), 1 CAP PO DAILY Pioglitazone Hcl (Pioglitazone Hcl), 1 TAB PO DAILY, (Reported) Past Medical History Past Medical History: No Pertinent History, Hypertension Past Surgical History: other Patient History: FH: diabetes mellitus sister Pacemaker MOTHER Alcohol Use: Occasionally Drug Use: none Lives with: Other Lives In: Home Occupation: unemployed Review of Systems Constitutional: Denies: fever Respiratory: Denies: shortness of breath Cardiovascular: Reports: chest pain Physical Exam Vital Signs: Temperature: 97.9, Source: Oral, Heart Rate: 90, Respiratory Rate: 18, BP: 146/97, Pulse Oximetry: 98, Weight: 90.000 Physical Exam General: This is a pleasant and intoxicated appearing middle-aged female HEENT: Atraumatic, oropharynx is moist, breath smells of alcohol Heart: Mild tachycardic, appears regular Lungs: Clear breath sounds bilateral, normal work of breathing, normal oxygen saturation on room air Abdomen: Soft, nondistended, nontender including in the epigastric region Extremities: Warm and well-perfused, no edema Neuro: Alert and oriented, no focal deficits Psychiatric: Appears mildly sedated, has slightly slurred speech, admits to alcohol use, but is cooperative Progress Results/Orders Results/Orders Orders - LAM PICHARDO MD Chest,Single View (01/06/25 02:14) Monitor (01/06/25 02:14) Saline Lock (01/06/25 02:14) Oxygen (01/06/25 02:14) Electrocardiogram (01/06/25 02:14) Hs Troponin I W Calculations (01/06/25 05:14) Completed Orders - LAM PICHARDO MD Chest,Single View (01/06/25 02:14) Cbc/Diff (01/06/25 02:14) PBNP (01/06/25 02:14) CMP (01/06/25 02:14) Hs Troponin I W Calculations (01/06/25 02:14) Hs Troponin I W Calculations (01/06/25 04:14) Ethanol (01/06/25 02:36) Acetaminophen 325mg Tablet (Tylenol Tabl (01/06/25 05:10) Medications Received in ER Medications (Trade) Dose Ordered Sig/Taylor Route PRN Reason Start Time Stop Time Status Last Admin Dose Admin (Tylenol tablet) 650 mg ONCE ONCE PO 01/06/25 05:10 01/06/25 05:11 DC 01/06/25 05:44 650 MG Vital Signs 01/06/25 01/06/25 01/06/25 01/06/25 02:01 02:37 02:40 05:50 Temp 97.9 97.6 Pulse 90 90 70 Resp 18 16 18 18 B/P (MAP) 146/97 144/112 (123) 156/100 Pulse Ox 98 99 99 Laboratory Tests Test 01/06/25 02:36 01/06/25 04:40 White Blood Count 4.6 Red Blood Count 4.34 Hemoglobin 13.6 Hematocrit 40.1 Mean Corpuscular Volume 92.3 Mean Corpuscular Hemoglobin 31.2 H Mean Corpuscular Hemoglobin Concent 33.8 Red Cell Distribution Width 15.3 H Platelet Count 137 L Mean Platelet Volume 6.3 L Neutrophils (%) (Auto) 45.6 Lymphocytes (%) (Auto) 38.9 Monocytes (%) (Auto) 13.2 H Eosinophils (%) (Auto) 1.4 Basophils (%) (Auto) 0.9 Neutrophils # (Auto) 2.1 Lymphocytes # (Auto) 1.8 Monocytes # (Auto) 0.6 Eosinophils # (Auto) 0.1 Basophils # (Auto) 0.0 CBC Comment Sodium Level 146 H Potassium Level 3.9 Chloride Level 109 H Carbon Dioxide Level 28.9 Anion Gap 8 Blood Urea Nitrogen 15 Creatinine 0.79 Estimated GFR/1.73 m2 75 BUN/Creatinine Ratio 19.0 Glucose Level 181 H Calcium Level 7.8 L Total Bilirubin 0.2 Aspartate Amino Transf (AST/SGOT) 52 H Alanine Aminotransferase (ALT/SGPT) 58 Alkaline Phosphatase 73 Troponin I High Sensitivity 9 9 Pro-B-Type Natriuretic Peptide < 30 Total Protein 6.4 Albumin 3.4 Globulin 3.0 Albumin/Globulin Ratio 1.1 Chemistry Comments Ethyl Alcohol Level 352 H Troponin I High Sens Percent Delta 0 Troponin I Hi Sens Absolute Change 0 EKG/XRAY/CT/US/VASC/MRI EKG : Additional Comment I personally interpreted the EKG and this shows: Sinus rhythm, rate 99, QTC 477, no STEMI or acute ischemic changes Medical Decision Making Additional Comment Differential includes ACS, PE, dissection, chest wall pain, gastritis, alcohol intoxication Assessment The patient presents with chest pain, in the setting of heavy alcohol use. On exam she does have reproducible tenderness over the anterior chest wall, and no abdominal tenderness. Her EKG shows no ischemic changes. Her workup here today is unremarkable including 2 negative troponins, and no other dangerous findings on her blood testing. She was observed here in the emergency department, after which time her chest pain improved. I feel she was safe for discharge home. I suspect that much of her presentation is related to heavy alcohol use. I doubt PE, dissection, or other or dangerous process. She was given outpatient instruc tions and return precautions. Departure Time of Disposition: 05:07 Disposition: 01 HOME / SELF CARE / HOMELESS Impression: Primary Impression: Chest pain Additional Impression: Alcoholic intoxication Condition: Improved Discharge Instructions: Nonspecific Chest Pain, Adult Referrals: NO PRIMARY CARE PROVIDER (PCP) Comments Your testing today did not show any dangerous causes for your chest pain. There was no evidence of a heart attack or other dangerous heart or lung problem. Education Educated: Patient Educated regarding: diagnosis, treatment, need for follow up Signature Scribe Signature: na Attestation: LAM Marcial MD Jan 06, 2025 02:14
--- NOTE | 2025-01-06 02:39 | RADIOLOGY REPORT ---
CHEST RADIOGRAPH Indication: CP Technique: Single frontal view of the chest was obtained COMPARISON: DI CHEST,SINGLE VIEW on DOS: 03/26/24, CHEST,SINGLE VIEW on DOS: 11/11/22, CHEST,SINGLE VIEW on DOS: 03/12/20 FINDINGS: Lines and Tubes: None Lungs: Clear Pleura: No effusion. No pneumothorax. Cardiomediastinal contours: Unremarkable Bones: Unremarkable IMPRESSION: 1. No acute disease.
[2025-01-06 02:49] LABS: BASOPHILS % (AUTO) 0.9 % (0-1); EOSINOPHILS # (AUTO) 0.1 X10'3 (0-0.9); EOSINOPHILS % (AUTO) 1.4 % (0-6); HEMATOCRIT 40.1 % (35.0-45.0); HEMOGLOBIN 13.6 g/dl (12.0-16.0); LYMPHOCYTES # (AUTO) 1.8 X10'3 (1.1-4.8); LYMPHOCYTES % (AUTO) 38.9 % (21-51); MEAN CORPUSCULAR HEMOGLOBIN 31.2 PG (27.0-31.0); MEAN CORPUSCULAR HGB CONC 33.8 g/dL (33.0-36.5); MEAN CORPUSCULAR VOLUME 92.3 FL (78-98); MEAN PLATELET VOLUME 6.3 FL (7.4-10.4); MONOCYTES # (AUTO) 0.6 X10'3 (0-0.9); MONOCYTES % (AUTO) 13.2 % (2-12); NEUTROPHILS # (AUTO) 2.1 X10'3 (1.8-7.7); NEUTROPHILS % (AUTO) 45.6 % (42-75); PLATELET COUNT 137 X10'3 (140-440); RED BLOOD COUNT 4.34 X10'6 (4.20-5.60); RED CELL DISTRIBUTION WIDTH 15.3 % (11.5-14.5); WHITE BLOOD COUNT 4.6 X10'3 (4.5-11.0)
[2025-01-06 03:02] LABS: ALANINE AMINOTRANSFERASE 58 U/L (12-78); ALBUMIN 3.4 G/DL (3.4-5.0); ALBUMIN/GLOBULIN RATIO 1.1 (1.1-1.5); ALKALINE PHOSPHATASE 73 IU/L (46-116); ANION GAP 8 (8-16); ASPARTATE AMINO TRANSFERASE 52 U/L (10-37); BILIRUBIN,TOTAL 0.2 MG/DL (0.1-1.0); BLOOD UREA NITROGEN 15 MG/DL (7-18); CALCIUM 7.8 MG/DL (8.5-10.1); CHLORIDE 109 MMOL/L (99-107); CREATININE 0.79 MG/DL (0.40-0.90); GLUCOSE 181 MG/DL (70-104); POTASSIUM 3.9 MMOL/L (3.5-5.1); SODIUM 146 MMOL/L (135-145); TOTAL CARBON DIOXIDE 28.9 MMOL/L (24-32); TOTAL PROTEIN 6.4 G/DL (6.4-8.2); eCRCL 65 ML/MIN; eGFR 75 ML/MIN
[2025-01-06 03:20] LABS: PRO BRAIN NATRIURETIC PEPTIDE < 30 PG/ML (0-125)
[2025-01-06 03:24] LABS: ETHANOL 352 MG/DL (<10)
[2025-01-06] MEDS: acetaminophen 325mg tablet PO ONE (05:44)
[2025-01-06 05:50] VITALS: BP 156/100; PULSE 70; RESP 18; TEMP 97.6; O2SAT 99
--- NOTE | 2025-01-06 06:21 | ELECTROCARDIOGRAPH REPORT ---
[facility] Test Date: 2025-01-06 Test Time: 02:01:35 Pat Name: YOKO STONE Department: EMERGENCY ROOM Room: Gender: F Skin Lap Bonder: NOEMI : 1965 Requested By: LAM PICHARDO Order Number: [id number] Reading MD: Dr. Marcell Moreland Measurements Intervals [place] Rate: 99 P: 65 [place]: 169 QRS: 21 QRSD: 92 T: 76 QT: 371 QTc: 477 Interpretive Statements Sinus rhythm Electronically Signed On 01-06-2025 19:02:[address] Marcell Moreland Please click the below link to view image of tracing.
== END 2025-01-06 05:52 | disposition home or self-care (01) ==
LOC: ER 01:57
DX: R07.89 Other chest pain (principal); F10.129 Alcohol abuse with intoxication, unspecified; Z79.84 Long term (current) use of oral hypoglycemic drugs; Z79.899 Other long term (current) drug therapy; Y90.9 Presence of alcohol in blood, level not specified; Z56.0 Unemployment, unspecified
CPT/HCPCS: 36415; 71045; 80053; 80320; 83880; 84484; 85025; 93005; 99285

== ENCOUNTER 2025-01-06 21:12 | Emergency (ER) | payer MEDICAID ==
[~2025-01-06] VITALS: Ht 160 cm; Wt 86.8 kg
--- NOTE | 2025-01-06 22:08 | ELECTROCARDIOGRAPH REPORT ---
[facility] Test Date: 2025-01-06 Test Time: 22:05:27 Pat Name: YOKO FOY Department: EMERGENCY ROOM Room: Gender: F Visual Presentation Manager: RICKY : 1965 Requested By: GABY OSPINA Order Number: [id number] Reading MD: Dr. Gaby Ospina Measurements Intervals [place] Rate: 79 P: 76 [place]: 177 QRS: 74 QRSD: 92 T: 64 QT: 394 QTc: 452 Interpretive Statements Sinus rhythm Electronically Signed On 01-06-2025 23:36:[address] Gaby Ospina Please click the below link to view image of tracing.
[2025-01-06 22:13] LABS: BASOPHILS % (AUTO) 0.8 % (0-1); EOSINOPHILS # (AUTO) 0.1 X10'3 (0-0.9); EOSINOPHILS % (AUTO) 2.1 % (0-6); HEMATOCRIT 40.5 % (35.0-45.0); HEMOGLOBIN 13.8 g/dl (12.0-16.0); LYMPHOCYTES # (AUTO) 1.8 X10'3 (1.1-4.8); MEAN CORPUSCULAR HEMOGLOBIN 31.5 PG (27.0-31.0); MEAN CORPUSCULAR VOLUME 92.8 FL (78-98); MEAN PLATELET VOLUME 6.4 FL (7.4-10.4); MONOCYTES # (AUTO) 0.5 X10'3 (0-0.9); MONOCYTES % (AUTO) 13.2 % (2-12); NEUTROPHILS # (AUTO) 1.6 X10'3 (1.8-7.7); NEUTROPHILS % (AUTO) 39.9 % (42-75); PLATELET COUNT 116 X10'3 (140-440); RED BLOOD COUNT 4.36 X10'6 (4.20-5.60); RED CELL DISTRIBUTION WIDTH 15.5 % (11.5-14.5); WHITE BLOOD COUNT 4.1 X10'3 (4.5-11.0)
--- NOTE | 2025-01-06 22:15 | Physician Documentation ---
History of Present Illness ~ Chief Complaint: ETOH Stated Complaint: ETOH Time Seen by MD: 21:46 OK to notify your PCP?: Yes Primary Medical Doctor: [facility] Source: patient Mode of Arrival: EMS Exam Limitations: no limitations HPI 59 year old female presents to the emergency department via EMS for complaints of chest pain. Patient states she has been under a lot of stress caused by loosing her home and has been having chest pain. She states that she has been having issues with her heart as there is a collection of fluid around it. She missed her appointment with her primary Dr. Crespo today and is now out of her medications. 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 Of note she presented to the emergency department earlier today and was evaluated by Dr. Medeiros. Tetanus within 5 years?: Yes Medication Reconciliation Allergies: Coded Allergies: No Known Allergies (Unverified , 01/06/25) Scheduled Atenolol (Tenormin), 25 MG PO BID Clonidine HCl (Clonidine HCl), 1 TAB PO Q8H, (Reported) Gabapentin (Gabapentin), 1 CAP PO DAILY, (Reported) Lactobacillus Rhamnosus GG (Culturelle), 1 CAP PO DAILY Pioglitazone Hcl (Pioglitazone Hcl), 1 TAB PO DAILY, (Reported) Past Medical History Past Medical History: Hypertension, Diabetes Past Surgical History: other Patient History: FH: diabetes mellitus sister Pacemaker MOTHER Alcohol Use: Occasionally Drug Use: none Lives with: Other Lives In: Home Occupation: unemployed Review of Systems All Other Systems at this time: Reviewed and Negative ROS As stated above in the HPI, otherwise all systems are reviewed and negative. Physical Exam Vital Signs: RN Vital Signs have been reviewed: Yes, Temperature: 98.0, Source: Oral, Heart Rate: 91, Respiratory Rate: 18, BP: 165/117, Pulse Oximetry: 100 Pulse Oximetry Reflects: adequate oxygenation Physical Exam General: The patient has small of alcohol on her breath, was sleeping and mumbling. is well developed, well nourished, nontoxic appearing and is in no acute distress. Skin: [place], warm and dry with no rashes. HEENT: Head was normocephalic and atraumatic. Eyes - pupils equal, round, reactive to light and accommodation. Extraocular movements were intact. Conjunctivae were nonicteric. Ears - bilateral tympanic membranes were normal. The mouth and oropharynx were clear with moist mucous membranes. There were no pharyngeal exudates or erythema. Neck: Supple and nontender. There was no jugular venous distention, lymphadenopathy, thyromegaly or masses. Chest: Point tenderness to lower sternum, reproducible. Clear to auscultation bilaterally without wheezes, rales or rhonchi. No accessory muscle use. No dullness to percussion. Heart: Rate regular and rhythmic. S1, S2. No murmurs. Palpation of the chest wall was normal. No rubs or thrills. Abdomen: Soft, nontender and nondistended. Positive bowel sounds. No guarding or rebound. No hepatosplenomegaly or palpable masses. Extremities: No cyanosis, clubbing or edema. The patient moves all extremities. Pulses were equal and symmetric. Neurologic: Cranial nerves II-XII were intact. Sensation was intact to light touch throughout. Motor strength was 5/5 in all four extremities. Deep tendon reflexes were intact in both upper and lower extremities. Psychologic: The patient was oriented to person, place and time. The patient demonstrated appropriate judgement and insight. Progress Results/Orders Reviewed/noted all lab results: Yes Results/Orders Orders - MARCELL MORELAND MD Electrocardiogram (01/06/25 21:58) Chest,Single View (01/06/25 22:22) Completed Orders - MARCELL MORELAND MD Cbc/Diff (01/06/25 21:58) Lipase (01/06/25 21:58) Ethanol (01/06/25 21:58) MG (01/06/25 21:58) Electrocardiogram (01/06/25 21:58) Chest,Single View (01/06/25 22:22) BMP (01/06/25 21:58) Hs Troponin I W Calculations (01/06/25 21:58) Normal Saline 1000ml (Sodium Chloride 10 (01/06/25 22:15) TSH (01/06/25 22:05) Liver Panel (01/06/25 22:05) Man Diff (01/06/25 22:05) Mag & Alum Hydrox/Simeth Susp (Maalox Or (01/06/25 23:35) Lidocaine 2% Viscous (Xylocaine 2% Visco (01/06/25 23:35) Ua W/Microscopic, Cult If Ind (01/06/25 23:24) Vital Signs 01/06/25 01/06/25 01/06/25 01/06/25 21:14 21:18 22:03 22:46 Temp 98.9 98.0 98.0 Pulse 86 91 89 Resp 16 19 18 17 B/P (MAP) 165/117 216/114 (148) Pulse Ox 95 100 92 01/07/25 01:20 Temp 98.0 Pulse 55 Resp 16 B/P (MAP) /113 Pulse Ox 70 Laboratory Tests Test 01/06/25 22:05 01/06/25 23:24 White Blood Count 4.1 L Red Blood Count 4.36 Hemoglobin 13.8 Hematocrit 40.5 Mean Corpuscular Volume 92.8 Mean Corpuscular Hemoglobin 31.5 H Mean Corpuscular Hemoglobin Concent 34.0 Red Cell Distribution Width 15.5 H Platelet Count 116 L Mean Platelet Volume 6.4 L Neutrophils (%) (Auto) 39.9 L Lymphocytes (%) (Auto) 44.0 Monocytes (%) (Auto) 13.2 H Eosinophils (%) (Auto) 2.1 Basophils (%) (Auto) 0.8 Neutrophils # (Auto) 1.6 L Lymphocytes # (Auto) 1.8 Monocytes # (Auto) 0.5 Eosinophils # (Auto) 0.1 Basophils # (Auto) 0.0 CBC Comment Differential Total Cells Counted 100 Neutrophils % (Manual) 34.0 L Band Neutrophils % 1.0 Lymphocytes % (Manual) 49.0 Monocytes % (Manual) 12.0 Eosinophils % (Manual) 3.0 Reactive Lymphocytes 1.0 H Platelet Estimate Decreased Red Blood Cell Morphology Normal Basophilic Stippling Sodium Level 146 H Potassium Level 4.0 Chloride Level 112 H Carbon Dioxide Level 25.3 Anion Gap 9 Blood Urea Nitrogen 12 Creatinine 0.75 Estimated GFR/1.73 m2 80 BUN/Creatinine Ratio 16.0 Glucose Level 126 H Calcium Level 7.6 L Magnesium Level 1.9 Total Bilirubin 0.3 Direct Bilirubin 0.1 Aspartate Amino Transf (AST/SGOT) 63 H Alanine Aminotransferase (ALT/SGPT) 59 Alkaline Phosphatase 65 Troponin I High Sensitivity 12 Troponin I High Sens Percent Delta 33 Troponin I Hi Sens Absolute Change 3 Total Protein 6.1 L Albumin 3.3 L Globulin 2.8 Albumin/Globulin Ratio 1.2 Lipase 110 H Thyroid Stimulating Hormone (TSH) 2.17 Chemistry Comments Ethyl Alcohol Level 267 H Urine Specimen Description Cln catch midstream Urine Color Yellow Urine Clarity Slightly cloudy Urine pH 6.0 Urine Specific [place] 1.010 Urine Protein Negative Urine Glucose (UA) Negative Urine Ketones Negative Urine Occult Blood Negative Urine Nitrite Negative Urine Bilirubin Negative Urine Urobilinogen 0.2 Urine Leukocyte Esterase Negative Urine RBC 0-2 Urine WBC 0-4 Urine Squamous Epithelial Cells Few Urine Transitional Epithelial Cells Few Urine Bacteria Few Urine Mucus Moderate Urine Culture Indicated Not ind Volume Urine Centrifuged 10 ml Urine Comment Re-Evaluation Re-Evaluation : Re-Evaluation: Improved Progress Patient was seen and examined. Patient was given reassurance. Patient presents with alcohol intoxication. Laboratory work was obtained IV lines were established and fluid bolus was given. She was complaining of some generalized weakness thyroid function was added as well. Afterwards patient received GI cocktail and ultimately was discharged home. Patient's laboratory work shows borderline low platelets at 116 otherwise within normal limits. Chemistry borderline hypernatremia sodium 146 calcium low at 7.6 LFTs within normal limits lipase slightly elevated at 110. Patient was not vomiting or having severe abdominal pain. Alcohol is elevated 267. Patient was given time and observed and allowed to metabolize. Patient was having some chest pain but seemed to be more chest wall pain and was reproducible. After period of observation to metabolize alcohol and when a safe disposition was established patient was then discharged home. Patient's blood pressure was a bit elevated she has medications at home. At time of discharge patient's blood pressure was 113/70. Continuous property assessment monitor interpretation shows normal sinus rhythm heart rate 80s, no ectopy, normal, my interpretation. Pulse oximetry monitor interpretation shows normal oxygenation at 99% room air, normal, my interpretation. EKG/XRAY/CT/US/VASC/MRI EKG : Intepreting Monitor?: Yes Additional Comment [facility] Test Date: 2025-01-06 Test Time: 22:05:27 Pat Name: YOKO FOY Department: EMERGENCY ROOM Room: Gender: F Agricultural Inspector: RICKY : 1965 Requested By: MARCELL MORELAND Order Number: [id number] Reading MD: Dr. Marcell Moreland Measurements Intervals [place] Rate: 79 P: 76 [place]: 177 QRS: 74 QRSD: 92 T: 64 QT: 394 QTc: 452 Interpretive Statements Sinus rhythm Electronically Signed On 01-06-2025 23:36:[address] Marcell Moreland Please click the below link to view image of tracing. EKG Date and Time:01/06/252204 Electronically Signed by: MARCELL MORELAND MD Date and Time: 01/06/25 2336 Chest X-Ray : Additional Comments Clinical History Shortness of breath Comparison None Technique: frontal chest x-ray Without Contrast YOKO FOY, [id number] Findings: Heart - normal lungs - no consolidation. bones - no acute fracture. Other- Impression: 1. No acute cardiopulmonary disease This report was electronically signed by Daryn Garnett MD on 01/07/2025 1:00:53 AM. Electronically Signed by:DARYN GARNETT MD Date & Time: 01/07/25 0104 Heart Score: Heart Score Response (Comments) Value History Slightly Suspicious 0 EKG Normal 0 Age 45-64 1 Risk Factors 1 or 2 risk factors 1 Troponin Normal limit 0 Total 2 Medical Decision Making Additional info obtained from: old records Differential Dx:Considerations: Intoxication - ETOH, Intoxication - other drug, Sub. Abuse -continuous, Sub. Abuse-intermittent, Dehydration, Encephalopathy, Hepatitis, Pancreatitis, Thiamine deficiency, Other Departure Time of Disposition: 23:37 Disposition: 01 HOME / SELF CARE / HOMELESS Impression: Primary Impression: Alcoholic intoxication Qualified Codes: F10.920 - Alcohol use, unspecified with intoxication, uncomplicated Additional Impression: Chest wall pain Condition: Stable Discharge Instructions: Alcohol Intoxication Referrals: NO PRIMARY CARE PROVIDER (PCP) Education Educated: Patient Educated regarding: diagnosis, treatment, need for follow up Signature Scribe Signature: Scribed for Marcell Moreland MD by Manjinder Phan . 01/06/25 22:22 Attestation: The note accurately reflects work and decisions made by me.Marcell Moreland MD 01/06/25 22:15 MARCELL MORELAND MD Jan 06, 2025 22:15 MANJINDER GUAMAN Jan 06, 2025 22:23
[2025-01-06] MEDS: normal saline 1000ML IV soln IVB ONE (22:30)
[2025-01-06 22:38] LABS: ALBUMIN 3.3 G/DL (3.4-5.0); ANION GAP 9 (8-16); BLOOD UREA NITROGEN 12 MG/DL (7-18); CALCIUM 7.6 MG/DL (8.5-10.1); CHLORIDE 112 MMOL/L (99-107); CREATININE 0.75 MG/DL (0.40-0.90); ETHANOL 267 MG/DL (<10); GLUCOSE 126 MG/DL (70-104); LIPASE 110 U/L (16-77); MAGNESIUM 1.9 MG/DL (1.5-2.4); SODIUM 146 MMOL/L (135-145); THYROID STIMULATING HORMONE 2.17 ulU/ml (0.34-4.50); TOTAL CARBON DIOXIDE 25.3 MMOL/L (24-32); eCRCL 68 ML/MIN; eGFR 80 ML/MIN
[2025-01-06 22:46] VITALS: BP_SYST 216
[2025-01-06 23:07] LABS: ALANINE AMINOTRANSFERASE 59 U/L (12-78); ALBUMIN/GLOBULIN RATIO 1.2 (1.1-1.5); ALKALINE PHOSPHATASE 65 IU/L (46-116); ASPARTATE AMINO TRANSFERASE 63 U/L (10-37); BILIRUBIN,DIRECT 0.1 MG/DL (0-0.3); BILIRUBIN,TOTAL 0.3 MG/DL (0.1-1.0); TOTAL PROTEIN 6.1 G/DL (6.4-8.2)
[2025-01-06 23:18] LABS: TOTAL CELLS COUNTED 100
[2025-01-06 23:19] LABS: PLATELET ESTIMATE DECREASED
[2025-01-06 23:43] LABS: BILIRUBIN,URINE NEGATIVE (Neg); COLOR,URINE YELLOW (Yellow); GLUCOSE, URINE NEGATIVE (Neg); KETONES,URINE NEGATIVE (Neg); LEUKOCYTE ESTERASE ,URINE NEGATIVE (Neg); NITRITES, URINE NEGATIVE (Neg); OCCULT BLOOD,URINE NEGATIVE (Neg); PROTEIN,URINE NEGATIVE (Neg); UROBILINOGEN,URINE 0.2 E.U/dL (0.2-1.0)
[2025-01-06 23:50] LABS: CLARITY,URINE SLIGHTLY CLOUDY (Clear); UA COLLECTION TYPE CLN CATCH MIDSTREAM
[2025-01-06 23:51] LABS: BACTERIA,URINE FEW /HPF (Neg); MUCUS STRANDS MODERATE /LPF (Neg); RBC,URINE 0-2 /HPF (0-2); SQUAMOUS EPITHELIAL CELL,UR FEW /LPF (FEW); TRANSITIONAL EPI CELLS,URINE FEW /HPF; WBC,URINE 0-4 /HPF (0-4)
[2025-01-07] MEDS: mag hydrox/Alum hydrox/simeth 30ml oral suspension PO ONE (00:01)
[2025-01-07] MEDS: LIDOcaine 2% Viscous 15ml cup MM ONE (00:01)
--- NOTE | 2025-01-07 01:04 | RADIOLOGY REPORT ---
Clinical History Shortness of breath Comparison None Technique: frontal chest x-ray Without Contrast YOKO FOY, [id number] Findings: Heart - normal lungs - no consolidation. bones - no acute fracture. Other- Impression: 1. No acute cardiopulmonary disease This report was electronically signed by Daryn Blunt MD on 01/07/2025 1:00:53 AM.
[2025-01-07 01:20] VITALS: BP_DIAS 113; PULSE 55; RESP 16; TEMP 98; O2SAT 70
== END 2025-01-07 02:09 | disposition home or self-care (01) ==
LOC: ER 21:13
DX: F10.129 Alcohol abuse with intoxication, unspecified (principal); R07.89 Other chest pain; E11.9 Type 2 diabetes mellitus without complications; I10 Essential (primary) hypertension; Y90.9 Presence of alcohol in blood, level not specified; Z88.8 Allergy status to other drugs, medicaments and biological substances; Z79.899 Other long term (current) drug therapy; Z56.0 Unemployment, unspecified; Z72.89 Other problems related to lifestyle
CPT/HCPCS: 36415; 71045; 80048; 80076; 80320; 81001; 83690; 83735; 84443; 84484; 85007; 85025; 93005; 96360; 99285; J7030